=== PATIENT | male | born 1995 | race Caucasian/White ===

== ENCOUNTER 2016-09-26 16:41 | Inpatient (IN) | payer OTHER ==
[~2016-09-26] VITALS: Ht 185.4 cm; Wt 87.0 kg
--- NOTE | 2016-09-26 17:05 | EMERGENCY ROOM VISIT NOTE ---
History Report prepared by Casi: Brea Zavala Under the Supervision of: Dr. Cindy Tan D.O. 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 The patient states that last night the patient was talking to some friends and was visibly upset venting about his recent breakup from his girlfriend and his grades. He states after talking with his friend he went to a friend's house to sleep because he was still visibly upset. He states that he went home this morning and police came to his apartment today after one of his friends call due to worrying that the patient had some suicidal ideation. The patient states that he did have suicidal tendencies in the past which one of his friends does know about. He states that he did talk to a counselor in the past about his thoughts and states that he felt like he grew out of it. He denies any homicidal or suicidal ideation. He states that he doesn't remember saying anything last night about suicidal attempts but was told that he might have said that he was going to jump off a roof and that he wasn't good enough for his girlfriend. He states felt better this morning and was no longer upset. He states that he believes that having to come to the ED is a big misunderstanding. The patient denies any other symptoms of health issues. He denies any drug or alcohol use. 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 Review of Systems See HPI for pertinent positives & negatives. A total of 10 systems reviewed and were otherwise negative. Past Medical & Surgical Medical Problems: (1) No Known Active Medical Problems Family History Patient reports no known family medical history. Social History Alcohol Use: none Drug Use: none Marital Status: single Housing Status: lives with roommate Occupation Status: [employer] student Current/Historical Medications Scheduled B-Complex Vitamins (Vitamin B Complex), 1 TAB PO DAILY Allergies Coded Allergies: No Known Allergies (Unverified , 09/26/16) Physical Exam Vital Signs Date Time Temp Pulse Resp B/P Pulse Ox O2 Delivery O2 Flow Rate FiO2 09/26/16 20:29 123 16 122/87 99 09/26/16 16:45 37.1 91 20 141/88 98 Room Air Physical Exam HEENT: Head - normocephalic and atraumatic Pupils are equal, round, and reactive to light. Extraocular eye muscles are intact, and sclera are anicteric. Nose - moist nasal mucosa without discharge. Mouth - moist buccal mucosa. Oropharynx is nonerythematous and there is no tonsillar exudate or edema noted. Neck: Supple; no JVD, nuchal rigidity, cervical lymphadenopathy, or auscultated bruits. Heart: Regular rate and rhythm. There is a normal S1 and S2 with no murmurs, clicks, or gallops appreciated. Lungs: Clear to auscultation bilaterally with no wheezes, rales, or rhonchi. Abdomen: Soft, completely nontender, nondistended, with good bowel sounds. There are no palpable pulsatile masses or hepatosplenomegaly. There is no guarding, rigidity, or rebound noted. Extremities: No evidence of cyanosis, clubbing, or edema. There are easily palpable peripheral pulses. Skin: warm and dry with good turgor and no rashes. Psych: normal affect, appears slightly depressed, denies suicidal ideation. Medical Decision & Procedures Laboratory Results 09/26/16 18:05 09/26/16 18:05 Test 09/26/16 17:15 09/26/16 18:05 Urine Color YELLOW Urine Appearance TURBID (CLEAR) Urine pH 8.0 (4.5-7.5) Urine Specific [place] 1.024 (1.000-1.030) Urine Protein NEG (NEG) Urine Glucose (UA) NEG (NEG) Urine Ketones NEG (NEG) Urine Occult Blood NEG (NEG) Urine Nitrite NEG (NEG) Urine Bilirubin NEG (NEG) Urine Urobilinogen NEG (NEG) Urine Leukocyte Esterase NEG (NEG) Urine WBC (Auto) 1-5 /hpf (0-5) Urine RBC (Auto) 0-4 /hpf (0-4) Urine Hyaline Casts (Auto) 1-5 /lpf (0-5) Urine Epithelial Cells (Auto) 5-10 /lpf (0-5) Urine Bacteria (Auto) NEG (NEG) Urine Opiates Screen NEG (NEG) Urine Methadone, Qualitative NEG (NEG) Urine Barbiturates NEG (NEG) Urine Phencyclidine (PCP) Level NEG (NEG) Ur Amphetamine/Methamphetamine NEG (NEG) MDMA (Ecstasy) Screen NEG (NEG) Urine Benzodiazepines Screen NEG (NEG) Urine Cocaine Metabolite NEG (NEG) Urine Marijuana (THC) NEG (NEG) Red Blood Count 4.83 M/uL (4.7-6.1) Mean Corpuscular Volume 90.5 fL (80-100) Mean Corpuscular Hemoglobin 31.1 pg (25-34) Mean Corpuscular Hemoglobin Concent 34.3 g/dl (32-36) RDW Standard Deviation 44.2 fL (36.4-46.3) RDW Coefficient of Variation 13.3 % (11.5-14.5) Mean Platelet Volume 10.9 fL (7.4-10.4) Anion Gap 7.0 mmol/L (3-11) Est Creatinine Clear Calc Drug Dose 140.1 ml/min Estimated GFR () 133.0 Estimated GFR (Non- 114.8 BUN/Creatinine Ratio 12.3 (10-20) Calcium Level 8.9 mg/dl (8.5-10.1) Total Bilirubin 0.7 mg/dl (0.2-1) Direct Bilirubin 0.1 mg/dl (0-0.2) Aspartate Amino Transf (AST/SGOT) 11 U/L (15-37) Alanine Aminotransferase (ALT/SGPT) 21 U/L (12-78) Alkaline Phosphatase 74 U/L (45-117) Total Protein 8.2 gm/dl (6.4-8.2) Albumin 4.5 gm/dl (3.4-5.0) Thyroid Stimulating Hormone (TSH) 1.520 uIu/ml (0.300-4.500) Salicylates Level < 1.7 mg/dl (2.8-20) Acetaminophen Level < 2 ug/ml (10-30) Ethyl Alcohol mg/dL < 3.0 mg/dl (0-3) Laboratory results per my review. ED Course 1653: Past medical records reviewed. The patient was evaluated in room A5. A complete history and physical exam was performed. Laboratory studies were drawn as above. 1903: The patient has been medically cleared for further evaluation. I discussed the case with our ED psychiatric case assembler. She has evaluated the patient and referred the patient for evaluation by 3 S. 1930: Staff from [address] [place] [address] are here to evaluate the patient. 2017: That patient has been accepted for placement for inpatient psychiatric care at [address] [place] [address]. Medical Decision The patient is a 21 year old male who presents to the ED with worsening depression. Differential diagnosis includes mood disorder, thought disorder, and suicidal threats. Labs: White count 7.2 Stable H&H Normal TSH Normal LFTs Normal renal function Normal glucose Negative tox screen Negative Tylenol and aspirin levels Negative ETOH Urinalysis was negative. This is a 21 year old male with a history of previous depression who was brought to the emergency department for psychiatric evaluation. The patient was quite upset last night over the breakup with his girlfriend and school. He apparently was making suicidal statements to this friend's. The friends became concerned today and called 911. The patient was evaluated by mobile crisis in the field and was brought here for psychiatric evaluation. The patient is willing to admit himself voluntarily for inpatient psychiatric care. Impression Primary Impression: Mood disorder Scribe Attestation The scribe's documentation has been prepared under my direction and personally reviewed by me in its entirety. I confirm that the note above accurately reflects all work, treatment, procedures, and medical decision making performed by me. Departure Information Dispostion Mental Health Acute Care ([address] [place] [address]) Referrals No Doctor, Assigned (PCP) Patient Instructions My [facility]
[2016-09-26] MEDS ORDERED: B-COTAB18 PO (17:28)
[2016-09-26 17:54] LABS: URINE APPEARANCE TURBID (CLEAR); URINE BILIRUBIN NEG (NEG); URINE COLOR YELLOW; URINE NITRITE NEG (NEG); URINE SPECIFIC GRAVITY 1.024 (1.000-1.030); UROBILINOGEN NEG (NEG)
[2016-09-26 18:01] LABS: MANUAL MICROSCOPIC REQUIRED? NO; REVIEW REQ? NO
[2016-09-26 18:14] LABS: BENZODIAZEPINE, URINE NEG (NEG); COCAINE,URINE NEG (NEG); PHENCYCLIDINE, URINE NEG (NEG)
[2016-09-26 18:27] LABS: HEMATOCRIT 43.7 % (42-52); MEAN CELL VOLUME 90.5 fL (80-100); MEAN CORPUSCULAR HEMOGLOBIN 31.1 pg (25-34); MEAN CORPUSCULAR HGB CONC 34.3 g/dl (32-36); MEAN PLATELET VOLUME 10.9 fL (7.4-10.4); PLATELET COUNT 253 K/uL (130-400); RED BLOOD COUNT 4.83 M/uL (4.7-6.1); WHITE BLOOD COUNT 7.24 K/uL (4.8-10.8)
[2016-09-26 18:45] LABS: BUN/CREATININE RATIO 12.3 (10-20); CALCIUM 8.9 mg/dl (8.5-10.1); CREATININE 0.95 mg/dl (0.60-1.40); POTASSIUM 3.7 mmol/L (3.5-5.1)
[2016-09-26 18:49] LABS: ACETAMINOPHEN < 2 ug/ml (10-30)
[2016-09-26 19:02] LABS: THYROID STIMULATING HORMONE 1.52 uIu/ml (0.300-4.500)
[2016-09-26 20:29] VITALS: O2SAT 99
[2016-09-26] MEDS ORDERED: NURSING VERBAL MED ORDER ONE (20:45)
[2016-09-26] MEDS ORDERED: BISMUTH SUBSALICYLATE PER ML OMNICELL CHARGE PO PRN (21:00)
[2016-09-26] MEDS ORDERED: SODIUM CHLORIDE 0.65% NA SOLN 45 ML (OCEAN) PRN (21:00)
[2016-09-26] MEDS ORDERED: ACETAMINOPHEN 325 MG TAB PO PRN (21:00)
[2016-09-26] MEDS ORDERED: MAGNESIUM HYDROXIDE SUSP 30 ML UDC PO PRN (21:00)
[2016-09-26] MEDS ORDERED: ALUMINUM/MAGNESIUM SUSP 30 ML UDC PO PRN (21:00)
[2016-09-26] MEDS ORDERED: hydrOXYzine HCL 25 MG TAB PO PRN ×2 (21:00)
[2016-09-26 21:16] VITALS: BP 149/89; PULSE 103; TEMP 36.8; BMI 25.3
[2016-09-27 07:06] VITALS: BP_SYST 116; BP_SYST 117; BP_DIAS 73; BP_DIAS 75; PULSE 102; PULSE 60; TEMP 36.3
[2016-09-27 07:13] VITALS: Ht 185.4 cm; Wt 87.0 kg
--- NOTE | 2016-09-27 09:29 | Psychiatric History & Physical ---
History Date of Service Sep 27, 2016. Identifying Data Leon Valle is a 21-year-old male who currently lives in [place] as a [employer] student. Leon Valle was admitted on a 201 voluntary commitment. Patient is admitted from his apartment, brought to the ED by the police when friends expressed concerns about him expressing suicidal ideation. There is a 302 petitioning statement from a [employer] case managers on the chart. Chief Complaint "this is a misunderstanding". History of Present Illness Leon has a history of SI in high school. He reportedly has been sharing his depressive thoughts with his friends, particularly in the past 4-5 days following a break-up with his girlfriend. He isn't doing well in 2 classes that he needs for [employer] major but is working with advisors to switch to IST. He states that his friend Huy who is discussed in the [facility] documents is autistic and misunderstood the timing and context of his statements. He keeps a journal about his experiences with depression as hopes that it can help others and denies writing any type of suicide note. When asked about the statement that he tried to harm himself 27 times in the past, he initially denied suicide attempts and claims never had thoughts to OD or cut. He did later admit that while in high school he stood by a busy [place] and was close to jumping into traffic but changed his mind. His parents found out about his symptoms at that time and enrolled him in counseling which he reports was beneficial. He denies making statements about jumping from the [employer] garage. He states that his conversation about his mood took place on the [employer] parking deck before driving his friend home. He spent the night prior to admission at his friend's place and woke up feeling better and returned to his apartment where he related [employer] did a safety check. He thought the matter was settled as they left but they returned again with [employer] and hand bulldozer completed a petitioning statement. He states being here is an inconvenience and denies need for outpatient therapy or medication. He currently states that he doesn't want his parents involved in his hospitalization and claims not to know his insurance. He doesn't want his friend Huy contacted but denies being angry at him. He denies vegetative symptoms of depression. He denies anxiety/panic attacks other than anxious about being "forced" to be here. He denies any history of manic symptoms. Past Psychiatric History Current OP Treatment: no current treatment Prior OP Treatment: therapist (while in high school) Prior Psych Hospitalizations: none Access to a Gun: No Suicide Attempts: No (but nearly went into traffic and apparently thought about suicide on multiple occasions in high school) Past Medication Trials none Past Medical/Surgical History History of Concussion/Seizure: No Allergies Allergies: Coded Allergies: No Known Allergies (Unverified , 09/26/16) Home Medications Scheduled B-Complex Vitamins (Vitamin B Complex), 1 TAB PO DAILY Family History History of Suicide: No History of Substance Abuse: No Psychiatric History: Yes (depression in extended relatives, currently brother.) Alcohol Use Alcohol Use In Past 12 Months: No AUDIT Total Score: 1 Smoking Use Smoking Status: Never Smoker Substance History denied Personal History Lives in: apartment, from [place] Childhood: 2 brothers, 1 half brother Education: graduated from high school, started college Work History: [employer], plans to stay in apartment and work there this summer Relationship History: never Children: none Legal History: none Psychological Trauma History: Other (denied abuse history) Review of Systems Psych: denies symptoms other than stated above Constitutional: denied Cardiovascular: denied GI: denied Neurologic: denied Remainder of 10 body systems also reviewed and denied other than noted above. Examination Physical Examination A physical exam was performed in the ER by Dr. Tan prior to admission to the unit. I accept that physical as correct/medical clearance for the inpatient physical exam. Vital Signs Vital Signs Past 12 Hours Date Time Temp Pulse Resp B/P Pulse Ox O2 Delivery O2 Flow Rate FiO2 09/27/16 07:06 36.3 60 16 117/75 102 116/73 Laboratory Results Last 24 Hours Test 09/26/16 17:15 09/26/16 18:05 Urine Color YELLOW Urine Appearance TURBID Urine pH 8.0 Urine Specific [place] 1.024 Urine Protein NEG Urine Glucose (UA) NEG Urine Ketones NEG Urine Occult Blood NEG Urine Nitrite NEG Urine Bilirubin NEG Urine Urobilinogen NEG Urine Leukocyte Esterase NEG Urine WBC (Auto) 1-5 /hpf Urine RBC (Auto) 0-4 /hpf Urine Hyaline Casts (Auto) 1-5 /lpf Urine Epithelial Cells (Auto) 5-10 /lpf Urine Bacteria (Auto) NEG Urine Opiates Screen NEG Urine Methadone, Qualitative NEG Urine Barbiturates NEG Urine Phencyclidine (PCP) Level NEG Ur Amphetamine/Methamphetamine NEG MDMA (Ecstasy) Screen NEG Urine Benzodiazepines Screen NEG Urine Cocaine Metabolite NEG Urine Marijuana (THC) NEG White Blood Count 7.24 K/uL Red Blood Count 4.83 M/uL Hemoglobin 15.0 g/dL Hematocrit 43.7 % Mean Corpuscular Volume 90.5 fL Mean Corpuscular Hemoglobin 31.1 pg Mean Corpuscular Hemoglobin Concent 34.3 g/dl RDW Standard Deviation 44.2 fL RDW Coefficient of Variation 13.3 % Platelet Count 253 K/uL Mean Platelet Volume 10.9 fL Sodium Level 140 mmol/L Potassium Level 3.7 mmol/L Chloride Level 106 mmol/L Carbon Dioxide Level 27 mmol/L Anion Gap 7.0 mmol/L Blood Urea Nitrogen 12 mg/dl Creatinine 0.95 mg/dl Est Creatinine Clear Calc Drug Dose 140.1 ml/min Estimated GFR () 133.0 Estimated GFR (Non- 114.8 BUN/Creatinine Ratio 12.3 Random Glucose 91 mg/dl Calcium Level 8.9 mg/dl Total Bilirubin 0.7 mg/dl Direct Bilirubin 0.1 mg/dl Aspartate Amino Transf (AST/SGOT) 11 U/L Alanine Aminotransferase (ALT/SGPT) 21 U/L Alkaline Phosphatase 74 U/L Total Protein 8.2 gm/dl Albumin 4.5 gm/dl Thyroid Stimulating Hormone (TSH) 1.520 uIu/ml Salicylates Level < 1.7 mg/dl Acetaminophen Level < 2 ug/ml Ethyl Alcohol mg/dL < 3.0 mg/dl Mental Examination During interview pt is: alert and oriented Appearance: appropriately dressed, appropriately groomed Eye contact is: good Motor behavior is: no abnormal motor movements Speech: normal in rate, rhythm & volume Affect: euthymic Mood is: anxious Thought process: clear, coherent Thought content: reality based without delusions Suicidal thought are: denied Homicidal thoughts are: denied Hallucinations: denies auditory, denies visual Cognition: memory grossly intact, attention grossly intact, language grossly intact Intelligence estimated to be: consistent with level of education Insight: limited Judgement: limited Impression / Recommendations Impression Leon is a 21 yo male with a history of depression in high school who presents following friend's concerns about SI. He is resistant to aftercare and family involvement in care and denies vegetative symptoms of depression. Inventory Assets Strengths: intelligent, involvement in student activities (video game club) Needs: resume outpatient therapy Risk Factors Assessment Male: Yes : Yes /single/: Yes Access to guns: No Health problems: No Substance use disorders: No Previous attempt: Yes (near attempt) Protective Factors Assessment Employed: Yes Recommendations (1) Depressive disorder 09/27/16 The patient is admitted to [facility] ) on q 15 min checks (behavioral with suicide precautions) for safety. The patient will participate in group, recreational and milieu therapies and will be offered additional individual and family sessions as clinically appropriate. Reviewed that need to confirm history and have clear safety/follow up plan prior to discharge. He has not yet signed a 72 hour notice but is clearly upset that he is not being discharged today, he then agreed to contact a friend to provide history. He is aware it is recommended that he notify his parents and insurance company. CPT Code Initial Hospital Care: [id number]
[2016-09-28 07:00] VITALS: BP_SYST 100; BP_SYST 111; BP_DIAS 65; BP_DIAS 69; PULSE 62; PULSE 94; TEMP 36.5
[2016-09-28 07:56] LABS: CHOLESTEROL/HDL RATIO 2.6
--- NOTE | 2016-09-28 11:54 | Discharge Instructions ---
Discharge Information Report Includes Report will include the: Discharge Instructions & Summary Admission Admission Date / Time: Sep 26, 2016 at 20:41 Reason for Admission: Depressive Dis Nos Discharge Discharge Diagnosis / Problem: Depression Condition at Discharge: Good Discharge Goals Goal(s): Decrease discomfort, Improve disease control, Prevent Disease Progression Activity Recommendations Activity Limitations: resume your previous activity . Instructions / Follow-Up Instructions / Follow-Up . SPECIAL CARE INSTRUCTIONS: 1. Follow through with your scheduled aftercare appointments. If unable to keep an appointment, please call to reschedule. 2. Take your medication only as prescribed. Medication should not be changed or stopped without the approval of your doctor. In the event of worsening symptoms or concerns about side effects, contact your doctor immediately. 3. Utilize new healthy coping skills, anger management skills, and stress management skills learned during your hospitalization. Journal feelings and process them with a support person. Identify stressors or situations that may result in relapse, deterioration or inappropriate behaviors and develop a plan to deal with those issues. 4. If your coping skills are ineffective and you are in crisis, contact your outpatient providers for direction. If unable to reach your providers, please call the CAN HELP LINE AT or go to the closest Emergency Room. 5. Avoid alcohol and un-prescribed drugs. 6. You have been provided with the Mental Health Advance Directives Pamphlet for your review. AFTERCARE APPOINTMENTS: * Please call your insurance company prior to your scheduled appointment to confirm your aftercare providers are covered. Take your insurance information to your appointments. . Discharge / Aftercare Planning . Follow-Up Care Plan for Follow-Up Care: The patient has an appt to see a couselor on Sunday at 1:30 Current Hospital Diet Patient's current hospital diet: Regular Diet Discharge Diet Recommended Diet: Regular Diet Procedures Procedures Performed: No Pending Studies Pending Studies at Discharge: No Medical Emergencies . Who to Call and When: Medical Emergencies: For questions or emergencies related to your hospital stay, please contact the Inpatient Behavioral Health Unit at [phone]. A fruit loader machine operator is on-call 01/01 for the Behavioral Health Unit for emergencies At any time you feel your situation is an emergency, you may also call 911 immediately. . Non-Emergent Contact Non-Emergency issues call your: Therapist Advance Directives Do You Have an Existing Mental: No Existing Living Will: No Existing Power of Cloud Administrator: No Advance Directives Info Given: To Pt/S.O. Advance Directives Reason: Declines as Mental Health Visit. Discharge Summary Admission HPI Per the Admitting provider: Leon has a history of SI in high school. He reportedly has been sharing his depressive thoughts with his friends, particularly in the past 4-5 days following a break-up with his girlfriend. He isn't doing well in 2 classes that he needs for Sensorist sciences major but is working with advisors to switch to IST. He states that his friend Huy who [facility] is autistic and misunderstood the timing and context of his statements. He keeps a journal about his experiences with depression as hopes that it can help others and denies writing any type of suicide note. When asked about the statement that he tried to harm himself 27 times in the past, he initially denied suicide attempts and claims never had thoughts to OD or cut. He did later admit that while in high school he stood by a busy [place] and was close to jumping into traffic but changed his mind. His parents found out about his symptoms at that time and enrolled him in counseling which he reports was beneficial. He denies making statements about jumping from the [employer] garage. He states that his conversation about his mood took place on the [employer] parking deck before driving his friend home. He spent the night prior to admission at his friend's place and woke up feeling better and returned to his apartment where he related [employer] did a safety check. He thought the matter was settled as they left but they returned again with VERONICA and appraiser completed a petitioning statement. He states being here is an inconvenience and denies need for outpatient therapy or medication. He currently states that he doesn't want his parents involved in his hospitalization and claims not to know his insurance. He doesn't want his friend Huy contacted but denies being angry at him. He denies vegetative symptoms of depression. He denies anxiety/panic attacks other than anxious about being "forced" to be here. He denies any history of manic symptoms. Hospital Course (1) Depressive disorder 09/27/16 The patient is admitted to [facility] ([facility] ) on q 15 min checks (behavioral with suicide precautions) for safety. The patient will participate in group, recreational and milieu therapies and will be offered additional individual and family sessions as clinically appropriate. Reviewed that need to confirm history and have clear safety/follow up plan prior to discharge. He has not yet signed a 72 hour notice but is clearly upset that he is not being discharged today, he then agreed to contact a friend to provide history. He is aware it is recommended that he notify his parents and insurance company. Risk Factors Assessment Male: Yes : Yes /single/: Yes Health problems: No Substance use disorders: No Previous attempt: Yes (near attempt) Protective Factors Assessment Employed: Yes Day of Discharge Assessment COURSE OF HOSPITALIZATION: The patient was admitted to our unit on a 201 commitment after his friends perceived him to be acutely suicidal. He denied that from the time of admission, saying that it was a misunderstanding after having talked with his friends about being sad over a breakup with a girlfriend and having had previous suicidal thoughts. Family meeting was held with his father who knows his son to be an honest person and accepts that if his son says he is not suicidal, he isn't. The patient agrees to talk with his father about his emotions in the event he does deteriorate. His friend was also contacted, a friend who was present during the events leading to hospitalization. This friend also believes that his statements were taken out of context and believed that he is safe to be discharged. We did not start any medications during his hospitalization. He was willing for follow-up and has made his own appointment at [facility]. DAY OF DISCHARGE ASSESSMENT: Today the patient is requesting discharge. He continues to deny suicidality and as a result of his stay, recognizes the need and benefit of reaching out for help. He has made his own appointment at [facility] to see a therapist by the name of Negra on Sunday at 1:30. Today he is casually dressed and somewhat disheveled. Eye contact is good. Gait and station are within normal limits. Affect is anxious. Speech is of normal rate volume and tone. Thoughts are organized, goal directed, and reality based. Recent and remote memory are intact per conversation. Intelligence is estimated to be average. Insight and judgment are improved over admission. Laboratory Test 09/26/16 17:15 09/26/16 18:05 09/28/16 07:05 Urine Color YELLOW Urine Appearance TURBID Urine pH 8.0 Urine Specific [place] 1.024 Urine Protein NEG Urine Glucose (UA) NEG Urine Ketones NEG Urine Occult Blood NEG Urine Nitrite NEG Urine Bilirubin NEG Urine Urobilinogen NEG Urine Leukocyte Esterase NEG Urine WBC (Auto) 1-5 Urine RBC (Auto) 0-4 Urine Hyaline Casts (Auto) 1-5 Urine Epithelial Cells (Auto) 5-10 Urine Bacteria (Auto) NEG Urine Opiates Screen NEG Urine Methadone, Qualitative NEG Urine Barbiturates NEG Urine Phencyclidine (PCP) Level NEG Ur Amphetamine/Methamphetamine NEG MDMA (Ecstasy) Screen NEG Urine Benzodiazepines Screen NEG Urine Cocaine Metabolite NEG Urine Marijuana (THC) NEG White Blood Count 7.24 Red Blood Count 4.83 Hemoglobin 15.0 Hematocrit 43.7 Mean Corpuscular Volume 90.5 Mean Corpuscular Hemoglobin 31.1 Mean Corpuscular Hemoglobin Concent 34.3 RDW Standard Deviation 44.2 RDW Coefficient of Variation 13.3 Platelet Count 253 Mean Platelet Volume 10.9 Sodium Level 140 Potassium Level 3.7 Chloride Level 106 Carbon Dioxide Level 27 Anion Gap 7.0 Blood Urea Nitrogen 12 Creatinine 0.95 Est Creatinine Clear Calc Drug Dose 140.1 Estimated GFR () 133.0 Estimated GFR (Non- 114.8 BUN/Creatinine Ratio 12.3 Random Glucose 91 Calcium Level 8.9 Total Bilirubin 0.7 Direct Bilirubin 0.1 Aspartate Amino Transferase (AST) 11 Alanine Aminotransferase (ALT) 21 Alkaline Phosphatase 74 Total Protein 8.2 Albumin 4.5 Thyroid Stimulating Hormone (TSH) 1.520 Salicylates Level < 1.7 Acetaminophen Level < 2 Ethyl Alcohol mg/dL < 3.0 Fasting Glucose 89 Triglycerides Level 65 Cholesterol Level 100 HDL Cholesterol 39 LDL Cholesterol, Calculated 48 VLDL Cholesterol, Calculated 13 Cholesterol/HDL Ratio 2.6 Total Time Total Time Spent (min): Greater than 30 minutes Total Time Included: examination of the patient, discharge planning, medication reconciliation, communication with other providers Tobacco Cessation at Discharge Smoking Status: Never Smoker FDA approved Prescription: non-smoker
== END 2016-09-28 12:52 | disposition home or self-care (01) | DRG 881 ==
LOC: ENRESERVTM → ENRESERVDT → C.EDA 16:43 → C.MHU 20:41
PROVIDERS: ADMIT Psychiatry & Neurology Psychiatry; ATTEND Psychiatry & Neurology Child & Adolescent Psychiatry
DX: F32.9 Major depressive disorder, single episode, unspecified (principal)